=== PATIENT | male | born 1980 | race Two or more races ===

== ENCOUNTER 2018-01-23 10:50 | Emergency (ER) | payer OTHER ==
[~2018-01-23] VITALS: Ht 165.1 cm; Wt 72.6 kg
[2018-01-23 11:16] LABS: BASO % 1 % (0-3); EOS # 0.2 x10^3/uL (0.0-0.7); EOS % 4 % (0-3); HEMATOCRIT 43.3 % (39.0-53.0); HEMOGLOBIN 15.5 g/dL (13.0-17.5); LYMPH # 1.1 x10^3/uL (1.0-4.8); LYMPH % 20 % (24-48); MEAN CORPUSCULAR HEMOGLOBIN 31 pg (25-35); MEAN CORPUSCULAR HGB CONC 36 g/dL (31-37); MEAN CORPUSCULAR VOLUME 87 fL (79-100); MONO # 0.4 x10^3/uL (0.0-1.1); MONO % 7 % (0-9); NEUT # 3.9 x10^3uL (1.8-7.7); NEUT % 68 % (31-73); PLATELET COUNT 164 x10^3/uL (140-400); RED BLOOD COUNT 4.97 x10^6/uL (4.30-5.70); RED CELL DISTRIBUTION WIDTH 13.4 % (11.5-14.5); WHITE BLOOD COUNT 5.7 x10^3/uL (4.0-11.0)
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
[2018-01-23 11:26] LABS: PROTHROMBIN TIME PATIENT 13.3 SEC (11.7-14.0)
[2018-01-23] MEDS ORDERED: CONTRAST GIVEN. MC PRN (11:30)
[2018-01-23] MEDS ORDERED: fentaNYL PF VIAL 100 MCG/2 ML VIAL IV ONE (11:30)
[2018-01-23] MEDS ORDERED: IOHEXOL 300 MG/ML 100ML VIAL. IV ONE (11:45)
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
[2018-01-23 12:15] VITALS: BP 116/75
[2018-01-24 08:36] LABS: CREATININE ISTAT 0.8 mg/dL (0.5-1.4); HEMOGLOBIN ISTAT 14.6 g/dL (14-18); ION CA ISTAT 1.2 mmol/L (1.13-1.32); POTASSIUM ISTAT 4.3 mmol/L (3.5-5.0)
== END 2018-01-23 12:31 | disposition home or self-care (01) ==
LOC: ER 10:50
DX: R51 Headache (principal); M54.2 Cervicalgia; R10.9 Unspecified abdominal pain; R42 Dizziness and giddiness; M54.6 Pain in thoracic spine; M54.5 Low back pain; V43.52XA Car driver injured in collision with other type car in traffic accident, initial encounter; Y93.89 Activity, other specified; Y92.410 Unspecified street and highway as the place of occurrence of the external cause; Y99.8 Other external cause status
CPT/HCPCS: 36415; 70450; 71045; 72125; 74177; 80047; 85025; 85610; 96374; 99285; J3010; Q9967